=== PATIENT | male | born 1955 | race Caucasian/White ===

== ENCOUNTER 2017-03-21 16:26 | Outpatient (CLI) | payer BC | END 2017-03-21 16:27 | disposition home or self-care (01) | LOC: MADLABBHPM 16:26 | PROVIDERS: ATTEND Family Medicine | DX: E11.9 Type 2 diabetes mellitus without complications (principal); I10 Essential (primary) hypertension; E78.5 Hyperlipidemia, unspecified; E87.6 Hypokalemia ==

== ENCOUNTER 2018-04-28 14:53 | Outpatient (CLI) | payer OTHER | END 2018-04-28 14:54 | disposition home or self-care (01) | LOC: MADEKG 14:53 | PROVIDERS: ATTEND Family Medicine | DX: I48.91 Unspecified atrial fibrillation (principal) | CPT/HCPCS: 93005; 93010 ==